=== PATIENT | male | born 1980 | race Hispanic/Latino ===

== ENCOUNTER 2023-12-09 18:00 | Emergency (ER) | payer SELFPAY ==
[~2023-12-09] VITALS: Ht 167.6 cm; Wt 95.3 kg
[~2023-12-09 18:00] MED LIST: NAPROXEN250 MG PO; ULTRAM 50MG50 MG PO
[2023-12-09 18:16] VITALS: O2SAT 100
== END 2023-12-09 18:25 | disposition home or self-care (01) ==
LOC: ER 18:07
DX: Z48.02 Encounter for removal of sutures (principal)
CPT/HCPCS: 99282